=== PATIENT | male | born 1970 | race African-American/Black ===

== ENCOUNTER 2021-03-11 02:37 | Emergency (ER) | payer OTHER ==
[2021-03-11] MEDS ORDERED: NAPROXEN250 MG PO (04:07)
== END 2021-03-11 04:20 | disposition home or self-care (01) ==
LOC: FER 02:37
DX: M10.9 Gout, unspecified (principal); I10 Essential (primary) hypertension; Z79.899 Other long term (current) drug therapy
CPT/HCPCS: 73630; J7512